=== PATIENT | female | born 1990 | race Caucasian/White ===

== ENCOUNTER 2018-09-07 09:55 | Day surgery (SDC) | payer OTHER, SELFPAY ==
[2018-09-04 10:04] VITALS: BMI 25.8
[2018-09-07] VITALS (9 sets, daily range): BP systolic 92–122; BP diastolic 58–86; PULSE 55–93; RESP 8–16; TEMP 36.2–37.5; O2SAT 95–100; BMI 25.8
[2018-09-07] MEDS: LACTATED RINGERS 1,000 ML 42 ML IV (10:48)
[2018-09-07] MEDS: MIDAZOLAM 2 MG/2 ML VIAL IV (11:11)
--- NOTE | 2018-09-07 11:15 | PM.PREOP ---
Pre-operative Note Interval Note Pre-op Check: Yes History & Physical exam performed today by Physician Changes: No
--- NOTE | 2018-09-07 11:15 | PM.HP.1 ---
History of Present Illness Date Patient Seen: 09/07/18 Time Patient Seen: 11:15 Chief complaint: [id number] DX LAP W/FULG OF ENDOMETRIOSIS Narrative: Patient is a 28-year-old with pelvic pain, pain with urination, pain with bowel movements just prior to her menstrual cycle. Patient History Medical History Dysmenorrhea (Acute) Dyspareunia (Acute) Endometriosis (Acute) H/O wisdom tooth extraction (Acute) Hyperaldosteronism (Acute) Menorrhagia (Acute) PCOS (polycystic ovarian syndrome) (Acute) Family & Social History Social History: household members spouse Tobacco & Substance use: Smoking Status Never smoker Meds Home Medications Medication Instructions Recorded Confirmed Type ondansetron HCl 8 mg tablet 8 mg PO BID 07/25/18 07/25/18 History spironolactone 25 mg tablet 25 mg PO TID 07/25/18 07/25/18 History Allergies Allergy/AdvReac Type Severity Reaction Status Date / Time bee venom protein (honey bee) Allergy Severe Anaphylaxis Verified 09/07/18 10:25 Sulfa (Sulfonamide Allergy Intermediate hives Verified 09/07/18 10:25 Antibiotics) Exam Vital Signs (past 8 hours): - 09/07/18 10:40 Temperature 98.2 F Pulse Rate 76 Respiratory Rate 16 Blood Pressure 120/70 Pulse Oximetry 100 Oxygen Delivery Method Room Air Narrative Exam Narrative: HEENT: No thyromegaly, no anterior cervical or supraclavicular lymphadenopathy. Lungs:Clear to auscultation bilaterally, no wheezes. Cardiovascular: Regular rate and rhythm, no murmurs, rubs, or gallops. Abdomen: No scars. No hepatosplenomegaly. No masses palpable. External genitalia: Normal Vagina: Normal Cervix: Normal Bimanual exam: 6 Week size uterus. Mobile. Rectal: No masses. Assessment & Plan (1) Pelvic pain in female: Current visit: Yes Status: Acute (2) Secondary dysmenorrhea: Current visit: Yes Status: Acute Plan: Assessment/Plan Narrative: Assessment: 28-year-old with pelvic pain, pain with urination, and pain with bowel movements just before her menstrual cycle Dysmenorrhea Plan: Diagnostic laparoscopy with possible fulguration of endometriosis The risks, benefits, and alternatives to the procedure were explained to the patient. The risks including bleeding, infection, injury to the bowel, bladder, or ureters. She understands these risks and agrees to proceed. A full PAR-Q was held and consent form was signed.
--- NOTE | 2018-09-07 11:18 | P.HP_ITS ---
History of Present Illness Date Patient Seen: 09/07/18 Time Patient Seen: 11:15 Chief complaint: [id number] DX LAP W/FULG OF ENDOMETRIOSIS Narrative: Patient is a 28-year-old with pelvic pain, pain with urination, pain with bowel movements just prior to her menstrual cycle. Patient History Medical History Dysmenorrhea (Acute) Dyspareunia (Acute) Endometriosis (Acute) H/O wisdom tooth extraction (Acute) Hyperaldosteronism (Acute) Menorrhagia (Acute) PCOS (polycystic ovarian syndrome) (Acute) Family & Social History Social History: household members spouse Tobacco & Substance use: Smoking Status Never smoker Meds Home Medications Medication Instructions Recorded Confirmed Type ondansetron HCl 8 mg tablet 8 mg PO BID 07/25/18 07/25/18 History spironolactone 25 mg tablet 25 mg PO TID 07/25/18 07/25/18 History Allergies Allergy/AdvReac Type Severity Reaction Status Date / Time bee venom protein (honey bee) Allergy Severe Anaphylaxis Verified 09/07/18 10:25 Sulfa (Sulfonamide Allergy Intermediate hives Verified 09/07/18 10:25 Antibiotics) Exam Vital Signs (past 8 hours): - 09/07/18 10:40 Temperature 98.2 F Pulse Rate 76 Respiratory Rate 16 Blood Pressure 120/70 Pulse Oximetry 100 Oxygen Delivery Method Room Air Narrative Exam Narrative: HEENT: No thyromegaly, no anterior cervical or supraclavicular lymphadenopathy. Lungs:Clear to auscultation bilaterally, no wheezes. Cardiovascular: Regular rate and rhythm, no murmurs, rubs, or gallops. Abdomen: No scars. No hepatosplenomegaly. No masses palpable. External genitalia: Normal Vagina: Normal Cervix: Normal Bimanual exam: 6 Week size uterus. Mobile. Rectal: No masses. Assessment & Plan (1) Pelvic pain in female: Current visit: Yes Status: Acute (2) Secondary dysmenorrhea: Current visit: Yes Status: Acute Plan: Assessment/Plan Narrative: Assessment: 28-year-old with pelvic pain, pain with urination, and pain with bowel movements just before her menstrual cycle Dysmenorrhea Plan: Diagnostic laparoscopy with possible fulguration of endometriosis The risks, benefits, and alternatives to the procedure were explained to the patient. The risks including bleeding, infection, injury to the bowel, bladder , or ureters. She understands these risks and agrees to proceed. A full PAR-Q was held and consent form was signed.
--- NOTE | 2018-09-07 11:45 | SUR.OPER ---
Lithotomy on padded OR bed, head on pillow, arms secured on padded arm boards at <90 degrees abduction. Legs secured in padded yellow fins stirrups.
[2018-09-07] MEDS: BUPIVACAINE 0.5% W/ EPI (PF) VIAL 30 ML INJ (11:59)
[2018-09-07] MEDS: ONDANSETRON 4 MG/2 ML INJ IV (12:30)
[2018-09-07] MEDS: fentaNYL 100 MCG/2 ML INJ 50 MCG IV (12:31)
[2018-09-07] MEDS: OXYCODONE/ACETAMINOPHEN 5/325 TABLET 1 TAB PO (13:25)
--- NOTE | 2018-09-07 13:41 | SUR.PREOP ---
pt resting. pain at 2/10, dressings dci, taking crackers and fluids, spouse at side ,
--- NOTE | 2018-10-05 07:15 | P.OP_ITS ---
Operative Date/Time/Diagnoses Date of procedure: 09/07/18 Time of procedure: 12:45 Pre-op diagnosis: Pain with urination and bowel movements with cycles Severe dysmenorrhea Pelvic pain Post-op diagnosis: same Procedure: Procedures Operation Date: 09/07/18 11:00 Actual Procedures Side Surgeon angela Shah Laparoscopy with lysis of adhesion Annabel Werner MD Indications: Severe dysmenorrhea Pain with urination and bowel movements at the time of her cycle Pelvic pain Surgeon: Annabel Werner Anesthesia Type: General Operative Notes Findings: 7 week size anteverted uterus. Normal tubes and ovaries Adhesion between the left colon and the anterior abdominal wall Normal liver, gallbladder, and appendix Closure Type: primary Specimen(s): none Estimated blood loss (mL): 3 Blood products transfused: none Procedure in detail: After informed consent was obtained, the patient was taken to the operating room where she was placed in the dorsal supine position. After adequate general endotracheal anesthesia was achieved, she was placed in the dorsal lithotomy position, and prepped and draped in the usual sterile fashion. A time-out was performed. A bivalve speculum was placed into the vagina , and the anterior lip of the cervix grasped with a single-tooth tenaculum. The cervical os was sequentially dilated until the Zumi uterine manipulator could pass easily into the endometrial cavity. The single-tooth tenaculum was removed from the anterior lip of the cervix. The bivalve speculum was removed from the vagina. Attention was then turned to the abdomen where 6 cc of 0.5% Marcaine with epinephrine were injected in the umbilical fold. A 5 mm incision was made. The Veress needle was placed into the peritoneal cavity, and its placement confirmed by aspiration and drop test. The abdominal cavity was insufflated with 3.2 L of CO2. The Veress needle was removed, and a 5 mm trocar was placed without difficulty. A 2nd trocar was placed above the pubic symphysis after 6 cc of 0.5% Marcaine with epinephrine were injected and a 5 mm incision was made. The pelvis and abdomen were examined with findings noted above. A 3rd incision was made midway between the pubic symphysis and umbilicus , 4 cm lateral to the midline on the left side. A 3rd 5 mm trocar was placed under direct visualization. There was an adhesion between the left colon and the anterior abdominal wall. This was taken down with the Endo Patricia with cautery. No other evidence of adhesions or endometriosis were found. The instruments were removed from the abdomen. The CO2 was allowed to escape. The incisions were repaired with 4 0 undyed Vicryl in a subcuticular fashion. Steri -Strips, 2 x 2, and op site were placed. The Zumi uterine manipulator was removed from the uterus. Sponge, lap, and instrument counts were correct x2. Patient tolerated the procedure well, and was taken to PACU in stable condition. Complications: none Post-operative Condition: stable Disposition: PACU Plan for aftercare: Home after recovery
== END 2018-09-07 15:05 | disposition home or self-care (01) ==
PROVIDERS: Visit Provider Obstetrics & Gynecology
PROC: (CPT 49320; principal; 2018-09-07 11:00)
DX: K66.0 Peritoneal adhesions (postprocedural) (postinfection) (principal); N94.6 Dysmenorrhea, unspecified; N94.5 Secondary dysmenorrhea; E28.2 Polycystic ovarian syndrome; E26.9 Hyperaldosteronism, unspecified
CPT/HCPCS: 44180; J1100; J1885; J2250; J2405; J2704; J3010